=== PATIENT | male | born 1990 ===

== ENCOUNTER 2024-09-01 16:48 | Emergency (ER) | payer MEDICAID ==
[~2024-09-01] VITALS: Ht 177.8 cm; Wt 71.8 kg
[2024-09-01 16:55] VITALS: BP 161/91; PULSE 83; RESP 18; TEMP 97.8; O2SAT 98
== END 2024-09-01 17:41 | disposition left against medical advice (07) ==
LOC: ER 16:50
DX: M25.571 Pain in right ankle and joints of right foot (principal); Z53.21 Procedure and treatment not carried out due to patient leaving prior to being seen by health care provider